=== PATIENT | male | born 1960 | race African-American/Black ===

== ENCOUNTER 2019-03-24 09:56 | Emergency (ER) | payer SELFPAY ==
[~2019-03-24] VITALS: Ht 182.9 cm; Wt 104.3 kg
[2019-03-24 09:58] VITALS: BP 153/70
--- NOTE | 2019-03-24 10:51 | PHYS DOC ---
Past Medical History Past Medical History: Other Additional Past Medical Histor: ENLARGED PROSTATE Past Surgical History: No Surgical History Additional Information: 1 PPD Alcohol Use: None Drug Use: None Adult General Chief Complaint Chief Complaint: URINE CATHETER PROBLEM [facility] HPI Patient is a 58 year old AA male who presents to the emergency department with a request for his urinary catheter to be removed. Patient states he has had a catheter for the last 2 months after being admitted to a [facility]. He is unable to follow-up with urologist until 05 May. Patient states he feels as if he would be able to urinate on his own now. Patient states the catheter was inserted because his prostate was enlarged and he was unable to urinate. Patient denies any fever, back pain, abdominal pain, nausea, vomiting, diarrhea, or fever. He denies any bloody drainage in his catheter. All other ROS is neg unless otherwise noted in HPI. Review of Systems Review of Systems See Above Allergies Allergies Allergies Coded Allergies Type Severity Reaction Last Updated Verified No Known Drug Allergies 03/24/19 No Physical Exam Physical Exam See Above Constitutional: Well developed, well nourished, no acute distress, non-toxic appearance. [] HENT: Normocephalic, atraumatic, bilateral external ears normal, nose normal. [] Eyes: PERRLA, EOMI, conjunctiva normal, no discharge. [] Neck: Normal range of motion, no stridor. [] Lungs & Thorax: Respirations even and unlabored, no retractions, no respiratory distress Abdomen: soft, no tenderness : Urethral meatus appears normal, no abnormal drainage around the catheter site. Skin: Warm, dry, no erythema, no rash. [] Extremities: No cyanosis, ROM intact Neurologic: Alert and oriented X 3, no focal deficits noted. [] Psychologic: Affect normal, judgement normal, mood normal. [] Current Patient Data Vital Signs Vital Signs Date Time Temp Pulse Resp B/P (MAP) Pulse Ox O2 Delivery O2 Flow Rate FiO2 03/24/19 09:58 97.5 58 19 153/70 (97) 100 Room Air 97.5 EKG EKG [] Course & Med Decision Making Course & Med Decision Making Pertinent Labs and Imaging studies reviewed. (See chart for details) dx: Catheter problems, urinary catheter removal The urinary catheter was removed by the nurse. Patient was instructed to return to the emergency room if he is unable to avoid for greater than 6 hours. Follow- up with urology as planned in April. Patient verbalized an understanding of home care, medications, follow-up, and return to ED instructions and was in agreement with the plan of care. [] Dragon Disclaimer Dragon Disclaimer This electronic medical record was generated, in whole or in part, using a voice recognition dictation system. Departure Departure Impression: Primary Impression: Urinary catheter present Additional Impressions: Complaint about urinary catheter Encounter for Sol catheter removal Disposition: HOME, SELF-CARE Condition: STABLE Patient Instructions: Indwelling Urinary Catheter Care-Brief Additional Instructions: As requested your urinary catheter was removed. Return to the emergency department if you are unable to void for a period greater than 6 hours. Follow- up with urology in April as planned. Problem Qualifiers JANET COLES [employer] COORDINATOR Mar 24, 2019 10:51
[2019-03-25] MEDS ORDERED: FINA5TAB4 PO (09:19)
[2019-03-25] MEDS ORDERED: CEPH500T PO (10:12)
== END 2019-03-24 10:55 | disposition home or self-care (01) ==
LOC: ER 09:56
DX: Z46.6 Encounter for fitting and adjustment of urinary device (principal)
CPT/HCPCS: 99281

== ENCOUNTER 2019-03-25 08:39 | Emergency (ER) | payer SELFPAY ==
[~2019-03-25] VITALS: Ht 182.9 cm; Wt 105.2 kg
[2019-03-25 08:55] VITALS: BP 131/61
[2019-03-25] MEDS ORDERED: FINA5TAB4 PO (09:19)
[2019-03-25] MEDS ORDERED: LIDOCAINE 2% JELLY 6ML IN APPLICATOR. MM ONE (09:30)
[2019-03-25 09:52] LABS: BILIRUBIN,URINE NEGATIVE (NEG); CLARITY,URINE CLEAR; COLOR,URINE YELLOW; NITRITE,URINE POSITIVE (NEG); PROTEIN,URINE NEGATIVE (NEG-TRACE); UROBILINOGEN,URINE 0.2 mg/dL (0.2 mg/dL)
[2019-03-25 10:02] LABS: BACTERIA,URINE MANY /HPF (0-FEW); WBC,URINE >40 /HPF (0-4)
[2019-03-25] MEDS ORDERED: CEPH500T PO (10:12)
--- NOTE | 2019-03-25 10:17 | PHYS DOC ---
Past Medical History Past Medical History: Other Additional Past Medical Histor: ENLARGED PROSTATE Past Surgical History: No Surgical History Alcohol Use: None Drug Use: None Adult General Chief Complaint Chief Complaint: URINARY RETENTION HPI HPI Patient is a 58 year old m p/w urinary retention small amount of urine only since catheter got pulled burning with urination no fever. justlittle dribbles has urology follow up at Review of Systems Review of Systems Constitutional: Denies fever or chills [] Eyes: Denies change in visual acuity, redness, or eye pain [] HENT: Denies nasal congestion or sore throat [] Respiratory: Denies cough or shortness of breath [] neg for abdo pain Neurologic: Denies headache, focal weakness or sensory changes [] Endocrine: Denies polyuria or polydipsia [] All other systems were reviewed and found to be within normal limits, except as documented in this note. Current Medications Current Medications Current Medications Medications (Trade) Dose Ordered Sig/Avni Start Time Stop Time Status Last Admin Dose Admin Lidocaine HCl (Glydo (Lidocaine) Jelly) 1 rosaura 1X ONCE 03/25/19 09:30 03/25/19 09:31 DC 03/25/19 09:30 1 ROSAURA Allergies Allergies Allergies Coded Allergies Type Severity Reaction Last Updated Verified No Known Drug Allergies 03/24/19 No Physical Exam Physical Exam Constitutional: Well developed, well nourished, no acute distress, non-toxic appearance. [] HENT: Normocephalic, atraumatic, bilateral external ears normal, oropharynx moist, no oral exudates, nose normal. [] Eyes: PERRLA, EOMI, conjunctiva normal, no discharge. [] Neck: Normal range of motion, no tenderness, supple, no stridor. [] Cardiovascular:Heart rate regular rhythm, no murmur [] Lungs & Thorax: Bilateral breath sounds clear to auscultation [] Abdomen: Bowel sounds normal, soft, no tenderness, no masses, no pulsatile masses. [] Skin: Warm, dry, no erythema, no rash. [] Back: No tenderness, no CVA tenderness. [] Extremities: No tenderness, no cyanosis, no clubbing, ROM intact, no edema. [] Neurologic: Alert and oriented X 3, normal motor function, normal sensory function, no focal deficits noted. [] Psychologic: Affect normal, judgement normal, mood normal. [] Current Patient Data Vital Signs Vital Signs Date Time Temp Pulse Resp B/P (MAP) Pulse Ox O2 Delivery O2 Flow Rate FiO2 03/25/19 08:55 97.9 65 16 131/61 (84) 98 Room Air 97.9 Lab Values Laboratory Tests Test 03/25/19 09:40 Urine Collection Type Unknown Urine Color Yellow Urine Clarity Clear Urine pH 5.0 Urine Specific Godwin 1.015 Urine Protein Negative mg/dL (NEG-TRACE) Urine Glucose (UA) Negative mg/dL (NEG) Urine Ketones (Stick) Negative mg/dL (NEG) Urine Blood Moderate (NEG) Urine Nitrite Positive (NEG) Urine Bilirubin Negative (NEG) Urine Urobilinogen Dipstick 0.2 mg/dL (0.2 mg/dL) Urine Leukocyte Esterase Large (NEG) Urine RBC 3-5 /HPF (0-2) Urine WBC >40 /HPF (0-4) Urine Bacteria Many /HPF (0-FEW) EKG EKG [] Radiology/Procedures Radiology/Procedures [] Course & Med Decision Making Course & Med Decision Making Pertinent Labs and Imaging studies reviewed. (See chart for details) []we placed fuller after bladder scan showed 300 mL u/a positive gave abx and added finasteride pt knows to f/u with urology Lisbet Disclaimer Lisbet Disclaimer This electronic medical record was generated, in whole or in part, using a voice recognition dictation system. Departure Departure Impression: Primary Impression: Urinary retention Disposition: 01 HOME, SELF-CARE Condition: STABLE Patient Instructions: Urinary Retention, Acute, Male Additional Instructions: see urology in one week. Scripts Cephalexin (CEPHALEXIN) 500 Mg Tablet 1 TAB PO QID, #40 TAB Prov: MAJO BILLINGSLEY MD 03/25/19 Finasteride (FINASTERIDE) 5 Mg Tablet 1 TAB PO DAILY, #30 TAB 0 Refills Prov: MAJO BILLINGSLEY MD 03/25/19 MAJO BILLINGSLEY MD Mar 25, 2019 10:17
== END 2019-03-25 10:14 | disposition home or self-care (01) ==
LOC: ER 08:39
DX: N40.1 Benign prostatic hyperplasia with lower urinary tract symptoms (principal); R33.8 Other retention of urine; R30.0 Dysuria
CPT/HCPCS: 51702; 81001; 87086; 99284; 99285-25